=== PATIENT | male | born 1950 | race Caucasian/White ===

== ENCOUNTER 2017-01-02 08:26 | Day surgery (SDC) | payer MEDICARE, BC ==
[~2017-01-02 08:26] MED LIST: Povidone-Iodine 5% Sterile Ophth Soln 30 ML Bottle EYELF ONE
[2017-01-02] MEDS ORDERED: Midazolam 1 MG/ML 2 ML SDV IV ONE (08:32)
[2017-01-02] MEDS ORDERED: Dexamethasone 4 MG/ML SDV IV ONE (08:32)
[2017-01-02] MEDS ORDERED: Moxifloxacin 0.5% Ophth Soln 3 ML Bottle EYELF ONE (09:00)
[2017-01-02] MEDS ORDERED: Timolol Maleate 0.5% Ophth Soln 5 ML Bottle EYELF ONE (09:00)
[2017-01-02] MEDS ORDERED: Phenylephrine 10% Ophth Soln 5 ML Bot EYELF PRN (09:00)
[2017-01-02] MEDS ORDERED: Cataract Ophth Solution EYELF ONE (09:00)
[2017-01-02] MEDS ORDERED: Proparacaine 0.5% Ophth Soln 15 ML Bottle EYELF ONE (09:00)
[2017-01-02] MEDS ORDERED: Acetaminophen/Codeine 300-30 MG Tab PO PRN (09:00)
[2017-01-02] MEDS ORDERED: Ondansetron 4 MG/2 ML SDV IVPUSH PRN (09:00)
[2017-01-02] MEDS ORDERED: Phenylephrine 10% Ophth Soln 5 ML Bot EYELF ONE (09:00)
[2017-01-02] MEDS ORDERED: Acetaminophen 325 MG Tab PO PRN (09:00)
[2017-01-02] MEDS ORDERED: Sodium Chloride 0.9% 10 ML Syringe FLUSH PRN (09:00)
--- NOTE | 2017-01-02 09:24 | PCM.SN ---
- Free Text/Narrative Note: Preop. Meds and allergies reviwed w chart review. No complications w previous anesthetics. NPo > 8 hrs. Quit smoking 2 months ago. Neg GERD. Lungs CTAB. heart RRR normal sounds. Risks benefits and alternatives of anesthesia explained to Pt. Pt denies questions or concerns. Plan MAC
[2017-01-02] MEDS ORDERED: Povidone-Iodine 5% Sterile Ophth Soln 30 ML Bottle EYELF ONE (10:18)
[2017-01-02] MEDS ORDERED: Tetracaine 0.5% 2 ML Bottle EYELF ONE (10:18)
[2017-01-02] MEDS ORDERED: Lidocaine 1% 30 ML SDV ONE (10:19)
[2017-01-02] MEDS ORDERED: Dexamethasone/Neomycin/Polymyxin B Ophth Oint 3.5 GM Tube EYELF ONE (10:19)
[2017-01-02] MEDS ORDERED: Diclofenac Sodium 0.1% Ophth Soln 5 ML Bottle EYELF ONE (10:19)
[2017-01-02] MEDS ORDERED: Apraclonidine 0.5% Ophth Soln 5 ML Bot EYELF ONE (10:19)
[2017-01-02] MEDS ORDERED: Chondroitin Sulfate/Hyaluronate Sodium Ophth Inj 0.75 ML Syringe EYELF ONE (10:20)
[2017-01-02] MEDS ORDERED: Balanced Salt Solution Ophth Irrig 500 ML Bottle IOCULAR ONE (10:20)
[2017-01-02] MEDS ORDERED: Vancomycin 500 MG SDV EYELF ONE (10:20)
--- NOTE | 2017-01-02 11:06 | OR ---
DATE: 01/02/2017 PREOPERATIVE DIAGNOSIS: Cataract, left eye. POSTOPERATIVE DIAGNOSIS: Cataract, left eye. PROCEDURE: Extracapsular cataract extraction with intraocular lens implant, left eye. ANESTHESIA: Topical/local MAC. COMPLICATIONS: None. INDICATION: Mr. Charles was seen in the clinic with complaints of blurred vision. He has difficulty reading, difficulty seeing a fine print, and his clinical examination reveals visually significant cataract. I explained options, offered cataract surgery, and I explained risks including, but not limited to, infection, retinal detachment, loss of vision, need for additional surgery, and risks associated with anesthesia. We discussed implant options. He requested a monofocal implant. He understands that he will likely require glasses following surgery. OPERATIVE DESCRIPTION: After informed consent was obtained and the risks, benefits, and alternatives were explained, the patient was brought to the operative suite and topical anesthesia was administered. The patient was then prepped and draped in the sterile fashion and attention was placed on the left eye. A sterile lid speculum was placed into the left eye to allow operative exposure. A full-thickness paracentesis was made in the temporal portion of the operative eye. Preservative-free lidocaine 0.1 mL was injected into the anterior chamber followed by viscoelastic. A full-thickness corneal incision was then made into the anterior chamber. A bent needle cystotome was used to create a small juanito in the anterior capsule. The capsulorrhexis forceps was then used to create a 360-degree curvilinear capsulorrhexis. The nucleus was then removed using a phacoemulsification handpiece and the remaining cortical material was then removed with irrigation and aspiration handpiece. Following removal of the cortical material, the capsular bag was then inspected and noted to be free of any holes or tears. Viscoelastic was then injected into the capsular bag and the intraocular lens was inserted into the capsular bag. No complications occurred. The viscoelastic material was then removed from both the anterior and posterior chambers and from behind the IOL. The lens and capsular bag were then reinspected. The IOL was well centered and the capsular bag intact. The wound and paracentesis sites were inspected and hydrated with balanced saline solution. Both were found to be self-sealing. The intraocular pressure was assessed digitally and found to be within normal range. A good red reflex was noted at the completion of the procedure. No complications occurred during the operation. At the completion of the procedure, Shira Sellers, and Iopidine drops were placed into the operative eye. A sterile eye shield was placed over the operative eye and the patient was transported to the postoperative recovery area having tolerated the procedure well. Postoperative instructions were given along with a postoperative appointment. The patient was advised to call with any questions or concerns. [facility] /[id number]
[2017-01-02 11:32] VITALS: BP 128/81
--- NOTE | 2017-01-09 09:15 | PCM.SN ---
- Free Text/Narrative Note: reop. Meds and allergies reviwed w chart review. No complications w previous anesthetics. NPo > 8 hrs. Quit smoking 2 months ago. Neg GERD. Lungs CTAB. heart RRR normal sounds. Risks benefits and alternatives of anesthesia explained to Pt. Pt denies questions or concerns. Plan MAC
== END 2017-01-02 11:30 | disposition home or self-care (01) ==
LOC: DL.SDS 08:26
PROVIDERS: ATTEND Ophthalmology
DX: H26.9 Unspecified cataract (principal); F17.210 Nicotine dependence, cigarettes, uncomplicated
CPT/HCPCS: 66984; A9270; J3370; J7050; 00142; C1780; J1100; J2250

== ENCOUNTER → 2017-01-09 | Day surgery (SDC) | payer MEDICARE, BC ==
[~2017-01-09] MED LIST changes: +Acetaminophen 325 MG Tab PO PRN; +Acetaminophen/Codeine 300-30 MG Tab PO PRN; +Apraclonidine 0.5% Ophth Soln 5 ML Bot EYERT ONE; +Balanced Salt Solution Ophth Irrig 500 ML Bottle IOCULAR ONE; +Cataract Ophth Solution EYERT ONE; +Chondroitin Sulfate/Hyaluronate Sodium Ophth Inj 0.75 ML Syringe EYERT ONE; +Dexamethasone 4 MG/ML SDV IV ONE; +Dexamethasone/Neomycin/Polymyxin B Ophth Oint 3.5 GM Tube EYERT ONE; +Diclofenac Sodium 0.1% Ophth Soln 5 ML Bottle EYERT ONE; +Lidocaine 1% 30 ML SDV ONE; +Midazolam 1 MG/ML 2 ML SDV IV ONE; +Moxifloxacin 0.5% Ophth Soln 3 ML Bottle EYERT ONE; +Ondansetron 4 MG/2 ML SDV IVPUSH PRN; +Phenylephrine 10% Ophth Soln 5 ML Bot EYERT ONE; +Phenylephrine 10% Ophth Soln 5 ML Bot EYERT PRN; -Povidone-Iodine 5% Sterile Ophth Soln 30 ML Bottle EYELF ONE; +Povidone-Iodine 5% Sterile Ophth Soln 30 ML Bottle EYERT ONE; +Proparacaine 0.5% Ophth Soln 15 ML Bottle EYERT ONE; +Sodium Chloride 0.9% 10 ML Syringe FLUSH PRN; +Tetracaine 0.5% 2 ML Bottle EYERT ONE; +Timolol Maleate 0.5% Ophth Soln 5 ML Bottle EYERT ONE; +Vancomycin 500 MG SDV EYERT ONE
[2017-01-09 10:59] VITALS: BP 116/87
--- NOTE | 2017-01-09 12:08 | PCM.SN ---
- Free Text/Narrative Note: Pt discharged home after discharge criteria met. No anesthesia concerns noted.
--- NOTE | 2017-01-09 12:12 | PCM.SN ---
- Free Text/Narrative Note: Preop. Meds and allergies reviewed. No complications w previous anesthetics. NPO > 8 hrs. Non smoker, neg GERD. Lungs CATB, heart RRR S1 S2 w/om. Risks benefits and alternatives of anesthesia explained to Pt. Pt denies questions or concerns. Plan MAC
--- NOTE | 2017-01-09 13:43 | OR ---
DATE: 01/09/2017 PREOPERATIVE DIAGNOSIS: Cataract, right eye. POSTOPERATIVE DIAGNOSIS: Cataract, right eye. PROCEDURE: Extracapsular cataract extraction with intraocular lens implant, right eye. ANESTHESIA: Topical/local MAC. COMPLICATIONS: None. INDICATION: Mr. Charles was seen in the clinic with complaints of blurred vision. Clinical examination revealed visually significant cataract. I explained options to Mr. Charles. I offered cataract surgery and I explained risks including, but not limited to, infection, retinal detachment, loss of vision, need for additional surgery, and risks associated with anesthesia. We discussed implant options. He requested a monofocal implant. He understands that he may require glasses for some activities following surgery. OPERATIVE DESCRIPTION: After informed consent was obtained and the risks, benefits, and alternatives were explained, the patient was brought to the operative suite and topical anesthesia was administered. The patient was then prepped and draped in the sterile fashion and attention was placed on the right eye. A sterile lid speculum was placed into the right eye to allow operative exposure. A full-thickness paracentesis was made in the temporal portion of the operative eye. Preservative-free lidocaine 0.1 mL was injected into the anterior chamber followed by viscoelastic. A full-thickness corneal incision was then made into the anterior chamber. A bent needle cystotome was used to create a small juanito in the anterior capsule. The capsulorrhexis forceps was then used to create a 360-degree curvilinear capsulorrhexis. The nucleus was then removed using a phacoemulsification handpiece and the remaining cortical material was then removed with irrigation and aspiration handpiece. Following removal of the cortical material, the capsular bag was then inspected and noted to be free of any holes or tears. Viscoelastic was then injected into the capsular bag and the intraocular lens was inserted into the capsular bag. The viscoelastic material was then removed from both the anterior and posterior chambers and from behind the IOL. The lens and capsular bag were then reinspected. The IOL was well centered and the capsular bag intact. The wound and paracentesis sites were inspected and hydrated with balanced saline solution. Both were found to be self- sealing. The intraocular pressure was assessed digitally and found to be within normal range. A good red reflex was noted at the completion of the procedure. No complications occurred during the operation. At the completion of the procedure, Maxitrol, Voltaren, and Iopidine drops were placed into the operative eye. A sterile eye shield was placed over the operative eye and the patient was transported to the postoperative recovery area having tolerated the procedure well. Postoperative instructions were given along with a postoperative appointment. The patient was advised to call with any questions or concerns. No complications occurred. [facility] /[id number]
== END | disposition home or self-care (01) ==
LOC: DL.SDS 08:27
PROVIDERS: ATTEND Ophthalmology
DX: H26.9 Unspecified cataract (principal); F17.210 Nicotine dependence, cigarettes, uncomplicated
CPT/HCPCS: 00142; 66984; A9270; J1100; J2250; J3370; J7050; V2632